=== PATIENT | female | born 1995 | race Hispanic/Latino ===

== ENCOUNTER → 2022-12-01 | Outpatient (CLI) | payer OTHER | LOC: M WHC 15:25 | PROVIDERS: ATTEND Family Medicine | DX: Z12.31 Encounter for screening mammogram for malignant neoplasm of breast (principal) ==

== ENCOUNTER → 2025-06-02 | Outpatient (REF) | payer OTHER ==
[2025-06-02 17:50] LABS: C REACTIVE PROTEIN QUANTITATIV 0.52 MG/DL (<1.0)
[2025-06-02 17:53] LABS: TOTAL 25(OH) VITAMIN D 18.7 NG/ML (20.0-100.0)
== END ==
LOC: M SFHCRHEU 14:36
PROVIDERS: ATTEND Internal Medicine
DX: E55.9 Vitamin D deficiency, unspecified (principal); R79.82 Elevated C-reactive protein (CRP)